=== PATIENT | male | born 1950 | race Caucasian/White ===

== ENCOUNTER 2017-05-23 16:48 | Inpatient (IN) | payer OTHER ==
[~2017-05-23] VITALS: Ht 170.2 cm; Wt 134.4 kg
[~2017-05-23 16:48] MED LIST: ADULT LOW DOSE81 M1 PO; ALTACE1.25 MG PO; CRESTOR40 MG PO; DIAZEPAM5 MG PO; LOPRESSOR50 MG G-TUBE; METFORMIN HCL500 MG PO; NAPROSYN500 MG PO; TOPROL XL6.25 MG PO; TRADJENTA5 MG PO; TRAMADOL HCL50 MG PO; TRULICITY1.5 MG/0.5 SC
[2017-05-23 17:56] LABS: EOSINOPHIL (%) 1.4 % (0-5); EOSINOPHIL COUNT 0.1 K/uL (0-0.3); HEMATOCRIT 42.1 % (38.0-50.0); IMMATURE GRANULOCYTE (%) 0.2 % (0.0-0.7); INSTRUMENT ABS NEUTROPHIL CT 2.8 K/uL; LYMPHOCYTE COUNT 1.5 K/uL (1.0-2.8); MCH 31.6 PG (29.0-34.0); MCHC 33.7 G/DL (30.0-36.0); MCV 93.8 FL (86-99); MEAN PLAT.VOLUME 10.2 uM^3 (9.0-12.4); MONOCYTE (%) 9.6 % (3-12); MONOCYTE COUNT 0.5 K/uL (0-0.8); NEUTROPHIL (%) 57.4 % (45-76); NEUTROPHIL COUNT 2.8 K/uL (1.8-6.4); PLATELET COUNT 141 K/uL (156-360); RBC DIS.WIDTH-CV 12.8 % (11.8-14.6); RBC DIS.WIDTH-SD 43.8 % (39-53); RED BLOOD COUNT 4.49 M/uL (4.00-5.50); WHITE BLOOD COUNT 4.9 K/uL (4.1-10.2)
[2017-05-23 18:05] LABS: CHLORIDE 99 mEq/L (99-109); POTASSIUM 4.2 mEq/L (3.7-5.4); SODIUM 133 mEq/L (136-147)
[2017-05-23 18:07] LABS: GLUCOSE 162 mg/dL (70-99)
[2017-05-23 18:09] LABS: ANION GAP 8 MEQ/L (2-14); TOTAL BILIRUBIN 0.3 mg/dL (0.0-1.0)
[2017-05-23 18:11] LABS: GFR ESTIMATE (CALCULATED) > 59 mL/min/
[2017-05-23 18:12] LABS: ALKALINE PHOSPHATASE 72 IU/L (3-129)
[2017-05-23 18:13] LABS: UREA NITROGEN (BUN) 19 mg/dL (9-23)
[2017-05-23 18:15] LABS: SALICYLATE < 5.0 MG/DL (15-30)
[2017-05-23 18:16] LABS: LIPASE 71 U/L (1.0-51.0)
[2017-05-23] MEDS ORDERED: LOVASTATIN40 MG PO (19:05)
[2017-05-23 19:06] LABS: INTER. NORMALIZED RATIO 1.1; PROTHROMBIN TIME 12.2 SEC (10.2-12.9)
[2017-05-23] MEDS ORDERED: TRULICITY0.75 MG/0. SC (19:07)
[2017-05-23] MEDS ORDERED: METFORMIN HCL500 MG PO (19:08)
[2017-05-23] MEDS ORDERED: ADVIL200 MG PO (19:09)
[2017-05-23] MEDS ORDERED: VISINE A.C300 DROP/1 BOTH EYES (19:09)
[2017-05-23 21:01] LABS: BASE EXCESS 0.3 mEq/L (-3 to +3); CARBOXY HGB 0 % (0-5); METHEMOGLOBIN 0.3 % (0-1.5); PCO2 45 mm Hg (35-45); PO2 82 mm Hg (80-100); pH 7.37 (7.35-7.45)
[2017-05-23 21:02] LABS: COMMENTS - BLOOD GASES A+C+; DEVICE NC; O2 FLOW 2 L/MIN; SITE LR; TOTAL RESP RATE 20 resp/min
[2017-05-23 21:03] LABS: DIRECT BILIRUBIN 0.1 mg/dL (0.0-0.3)
[2017-05-23 21:35] VITALS: BP 119/97
[2017-05-23 22:26] LABS: POINT-OF-CARE METER ID UU14174225
[2017-05-24 02:38] LABS: AMPHETAMINES QUANT VALUE 0 NG/ML; BARBITUATES QUANT VALUE 0 NG/ML; BENZODIAZEPINES QUANT VALUE 0 NG/ML; BENZODIAZEPINES, URINE SCREEN Negative (200 ng/mL); MARIJUANA QUANT VALUE 0 NG/ML; OPIATES QUANTITATIVE VALUE 0 NG/ML; PHENCYCLIDINE QUANT VALUE 0 NG/ML
[2017-05-24 03:08] VITALS: BP 111/56
[2017-05-24 07:01] LABS: MCH 32.5 PG (29.0-34.0); MCHC 34.5 G/DL (30.0-36.0); MCV 94.2 FL (86-99); MEAN PLAT.VOLUME 10.5 uM^3 (9.0-12.4); PLATELET COUNT 136 K/uL (156-360); RBC DIS.WIDTH-SD 44.7 % (39-53); RED BLOOD COUNT 4.46 M/uL (4.00-5.50); WHITE BLOOD COUNT 4.4 K/uL (4.1-10.2)
[2017-05-24 07:34] LABS: ALKALINE PHOSPHATASE 59 IU/L (3-129); ANION GAP 9 MEQ/L (2-14); CHLORIDE 102 MEQ/L (99-109); GFR ESTIMATE (CALCULATED) > 59 mL/min/; GLUCOSE 189 mg/dL (70-99); POTASSIUM 4.4 MEQ/L (3.7-5.4); SAMPLE HEMOLYSIS CHECK 0; SAMPLE ICTERIC CHECK 0; SAMPLE LIPEMIA CHECK 0; SODIUM 135 MEQ/L (136-147); TOTAL BILIRUBIN 0.4 MG/DL (0.0-1.0); UREA NITROGEN (BUN) 13 mg/dL (9-23)
[2017-05-24 08:32] LABS: POINT-OF-CARE METER ID UU13113717
[2017-05-24 09:03] VITALS: BP 156/80; BP 516/80
[2017-05-24 11:41] VITALS: BP 155/89
== END 2017-05-24 12:15 | disposition home or self-care (01) | DRG 917 ==
LOC: EME 16:48 → EDOF 20:31 → 5SOUTH 20:31 → ENRESERV 20:39 → 5SOUTH 21:24
PROVIDERS: Emergency Medicine; Hospitalist
DX: T62.0X1A Toxic effect of ingested mushrooms, accidental (unintentional), initial encounter (principal); G93.41 Metabolic encephalopathy; R74.0 Nonspecific elevation of levels of transaminase and lactic acid dehydrogenase [LDH]; I25.10 Atherosclerotic heart disease of native coronary artery without angina pectoris; Z95.5 Presence of coronary angioplasty implant and graft; E66.01 Morbid (severe) obesity due to excess calories; I10 Essential (primary) hypertension; E11.9 Type 2 diabetes mellitus without complications; D69.6 Thrombocytopenia, unspecified; R25.1 Tremor, unspecified; E87.1 Hypo-osmolality and hyponatremia; E78.5 Hyperlipidemia, unspecified; Y92.9 Unspecified place or not applicable; G47.33 Obstructive sleep apnea (adult) (pediatric); Z68.42 Body mass index [BMI] 45.0-49.9, adult; Z83.3 Family history of diabetes mellitus
CPT/HCPCS: 36600; 80053; 80076; 80306 90; 82140; 82248; 82550; 82803; 82948; 83690; 85025; 85027; 85610; 85730; 93005; 99281; 99285; G0480; J1650; J1815; J7030; S0028